=== PATIENT | male | born 1970 | race African-American/Black ===

== ENCOUNTER 2024-12-06 15:14 | Emergency (ER) | payer OTHER ==
[2024-12-06 16:05] LABS: ALT (SGPT) 20 U/L (Less than 45); AST (SGOT) 22 U/L (11-34); Albumin 4.1 g/dL (3.1-4.5); Alkaline Phosphatase 68 U/L (40-110); Anion Gap 14 mmol/L (10-20); BUN (Urea Nitrogen) 13 mg/dL (8.4-25.7); Bilirubin, Total 0.3 mg/dL (0.3-1.2); Calc. Creatinine Clearance 0 mL/min (70-130); Calcium 9.2 mg/dL (7.8-10.44); Carbon Dioxide 28 mmol/L (22-29); Chloride 101 mmol/L (98-107); Globulin 4.2 g/dL (2.4-3.5); Glucose 97 mg/dL (70-105); Lipase 25 U/L (8-78); Potassium 4.1 mmol/L (3.5-5.1); Sodium 139 mmol/L (136-145)
[2024-12-06 16:13] LABS: #Basophils 0.05 10x3/uL (0.0-0.2); #Eosinophils 1.92 10x3/uL (0.0-0.7); #Monocytes 0.43 10x3/uL (0.11-0.59); #Neutrophils 1.95 10x3/uL (1.40-6.50); %Basophils 0.7 % (0.0-1.0); %Eosinophils 26.1 % (0.0-10.0); %Lymphocytes 40.8 % (21.0-51.0); %Monocytes 5.9 % (0.0-10.0); %Neutrophils 26.5 % (42.0-75.0); Hematocrit 45.3 % (42.0-52.0); Hemoglobin 15.0 g/dL (14.0-18.0); Mean Corpuscular Hemoglobin 30.0 pg (27.0-31.0); Mean Corpuscular Volume 90.6 fL (78.0-98.0); Platelet Count 217 10x3/uL (130-400); Red Blood Cell (RBC) Count 5.00 mill/uL (4.70-6.10); White Blood Cell (WBC) Count 7.35 10x3/uL (4.8-10.8)
[2024-12-06 16:56] LABS: Anisocytosis MARKED = >30 cells HPF (0-5); Macrocytosis MODERATE=16-30 cells HPF (0-5); Ovalocytes SLIGHT = 2-5 cells HPF (0-1); Platelet Adequacy Comment Platelets Normal; Smudge Cells 11.1 %
== END 2024-12-06 18:37 ==
LOC: EEVIPCON 15:14 → ERS 15:14
DX: R06.02 Shortness of breath (principal); I10 Essential (primary) hypertension; J45.909 Unspecified asthma, uncomplicated; Z79.51 Long term (current) use of inhaled steroids; Z79.899 Other long term (current) drug therapy
CPT/HCPCS: 71045; 80053; 83690; 83880; 84145; 84484; 85025; 85379; 87428; 93005